=== PATIENT | female | born 1965 | race Two or more races ===

== ENCOUNTER → 2024-11-28 | Emergency (ER) | payer OTHER ==
[~2024-11-28] VITALS: Ht 167.6 cm; Wt 131.5 kg
[~2024-11-28] MED LIST: AMBIEN10 MG PO; DEPAKOTE ER500 MG PO; DEXAMETHASONE SODIUM PHOSPHATE 4 MG/ML VIAL IM STA; DEXAMETHASONE SODIUM PHOSPHATE 4 MG/ML VIAL ONE; KETOROLAC TROMETHAMINE 30 MG VIAL IM STA; KETOROLAC TROMETHAMINE 30 MG VIAL ONE; NAPROXEN500 MG PO; RISPERDAL1 MG; SYNTHROID125 MCG PO; ZESTRIL10 M1; ZOLOFT100 MG PO; ZYLOPRIM100 M1
== END | disposition home or self-care (01) ==
LOC: ER 19:24
DX: M25.561 Pain in right knee (principal)